=== PATIENT | male | born 1945 | race African-American/Black ===

== ENCOUNTER 2020-01-05 11:57 | Inpatient (IN) | payer OTHER ==
[~2020-01-05] VITALS: Ht 180.3 cm; Wt 71.2 kg
[2020-01-05] MEDS ORDERED: SODIUM CHLORIDE 0.9% 1000ML BAG (SEPSIS BOLUS) IV ONE (12:45)
[2020-01-05 13:14] LABS: HEMATOCRIT. 47.5 % (42.0-52.0); HEMOGLOBIN. 15.8 g/dL (14.0-18.0); MEAN CORPUSCULAR HEMOGLOBIN 28.1 pg (28.0-32.0); MEAN CORPUSCULAR VOLUME 84.2 fL (80.0-94.0); MEAN PLATELET VOLUME 7.7 fl (7.4-10.4); PLATELET 226 x1000/uL (130-400); RED BLOOD CELL COUNT 5.64 mill/uL (4.7-6.1); RED CELL DISTRIBUTION WIDTH 13.9 % (11.6-14.6)
[2020-01-05 13:27] LABS: INR 1.2
[2020-01-05 13:35] LABS: CHLORIDE 107 mEq/L (98-107)
[2020-01-05] MEDS ORDERED: MORPHINE SULFATE 4 MG/ML CPJ (NOT FOR IM USE) IV ONE (13:45)
[2020-01-05] MEDS ORDERED: ONDANSETRON HCL 4MG/2ML INJ IV ONE (13:45)
[2020-01-05] MEDS ORDERED: PIPERACILLIN/TAZ 3.375G PREMIX 50 ML IV ONE (13:45)
[2020-01-05 14:03] LABS: CLARITY URINE CLEAR (CLEAR); COLOR URINE YELLOW (YELLOW); KETONES URINE NEGATIVE (NEGATIVE); LEUKOCYTE ESTERASE URINE NEGATIVE (NEGATIVE); NITRITE URINE NEGATIVE (NEGATIVE); OCCULT BLOOD URINE TRACE (NEGATIVE); PH URINE 6.5 (4.5-8.0); PROTEIN URINE TRACE (NEGATIVE); SPECIFIC GRAVITY URINE 1.013 (1.005-1.030); UROBILINOGEN URINE 0.2 E.U./dL (0.2-1.0)
[2020-01-05 15:20] LABS: PLATELET ESTIMATE NORMAL
[2020-01-05] MEDS ORDERED: BUPIVACAINE HCL 0.5% (5MG/ML) 50ML ONE (17:07)
[2020-01-05] MEDS ORDERED: SKIN ADHESIVE 0.7 GM EA TOP ONE (17:07)
[2020-01-05] MEDS ORDERED: IPRATROPIUM/ALBUTEROL 0.5-3(2.5)MG/3ML NEB HHN NR ×2 (17:43→19:41)
[2020-01-05] MEDS ORDERED: IPRATROPIUM/ALBUTEROL 0.5-3(2.5)MG/3ML NEB HHN SCH (17:45)
[2020-01-05] MEDS ORDERED: CEFEPIME 1,000 MG in DEXTROSE 5% WATER 50 ML IV SCH ×2 (17:45→18:00)
[2020-01-05] MEDS ORDERED: ACETAMINOPHEN 325MG TABLET PO PRN (17:45)
[2020-01-05] MEDS ORDERED: ONDANSETRON HCL 4MG/2ML INJ IV PRN ×4 (17:45→19:00)
[2020-01-05] MEDS ORDERED: ENALAPRIL 2.5MG/2ML VIAL 2ML IV PRN ×2 (18:00→18:15)
[2020-01-05] MEDS ORDERED: FENTANYL CITRATE/PF 50MCG/ML 2ML VIAL ONE ×2 (18:12→18:23)
[2020-01-05] MEDS ORDERED: PROPOFOL 200MG/20ML VIAL IV ONE (18:12)
[2020-01-05] MEDS ORDERED: ROCURONIUM BROMIDE 10MG/ML VIAL 5ML IV ONE (18:12)
[2020-01-05] MEDS ORDERED: NEOSTIGMINE METHYLSULFATE 1MG/ML 10 ML VIAL ONE (18:12)
[2020-01-05] MEDS ORDERED: MIDAZOLAM HCL 2 MG/2 ML VIAL ONE (18:12)
[2020-01-05] MEDS ORDERED: SUCCINYLCHOLINE CHLORIDE 200MG/10ML IV ONE (18:13)
[2020-01-05] MEDS ORDERED: ONDANSETRON HCL 4MG/2ML INJ ONE (18:13)
[2020-01-05] MEDS ORDERED: LIDOCAINE HCL/PF 1% 10 MG/ML 5ML VIAL ONE (18:13)
[2020-01-05] MEDS ORDERED: EPHEDRINE SULFATE 50MG/ML VIAL ONE (18:13)
[2020-01-05] MEDS ORDERED: GLYCOPYRROLATE 0.2 MG/ML 2ML VIAL ONE (18:13)
[2020-01-05] MEDS ORDERED: METOCLOPRAMIDE HCL 10MG/2ML VIAL ONE (18:13)
[2020-01-05] MEDS ORDERED: PHENYLEPHRINE HCL 10 MG/ML 1ML (IV VIAL) IV ONE (18:13)
[2020-01-05] MEDS ORDERED: SODIUM CHLORIDE 0.9% 10ML VIAL ONE (18:13)
[2020-01-05] MEDS ORDERED: DEXT 5%/0.45% NACL KCL 20MEQ/L 1,000 ML IV SCH ×4 (18:14→23:30)
[2020-01-05] MEDS ORDERED: HYDROCODONE/ACETAMINOPHEN 5/325MG TABLET PO PRN ×4 (18:15→18:30)
[2020-01-05] MEDS ORDERED: MORPHINE SULFATE 4 MG/ML CPJ (NOT FOR IM USE) IV PRN (18:15)
[2020-01-05] MEDS ORDERED: ACETAMINOPHEN 650MG SUPP PR PRN ×2 (18:15→18:30)
[2020-01-05] MEDS ORDERED: MORPHINE SULFATE 2 MG/ML CPJ (NOT FOR IM USE) IV PRN ×2 (18:15→19:00)
[2020-01-05] MEDS ORDERED: LABETALOL HCL 5MG/ML VIAL 20ML IV ONE (18:51)
[2020-01-05] MEDS ORDERED: MEPERIDINE HCL/PF 25MG/ML CPJ IV PRN (19:00)
[2020-01-05] MEDS ORDERED: HYDROMORPHONE HCL/PF 2MG/ML CPJ IV PRN (19:00)
[2020-01-05] MEDS ORDERED: SODIUM CHLORIDE 0.9% 1,000 ML IV ONE (19:15)
[2020-01-05 20:10] LABS: BG BASE EXCESS -4.3 mmol/L (-2.0-2.0); BG DEOXYHEMOGLOBIN 0.8 % (0.0-5.0); BG FRACTION INSPIRED OXYGEN 60; BG HCO3 ACT 21.6 mmol/L (22.0-26.0); BG METHEMOGLOBIN 0.4 % (0.0-1.5); BG OXYGEN SATURATION 99.2 % (92.0-98.5); BG OXYHEMOGLOBIN 96.8 % (94.0-97.0); BG PCO2 42.4 mmHg (35.0-45.0); BG PH 7.325 (7.350-7.450); BG PO2 165.9 mmHg (75.0-100.0); BG SAMPLE SITE RIGHT RADIAL; BG TOTAL HEMOGLOBIN 15.8 g/dL (12.0-18.0); BG VENT MODE MASK - SIMPLE
[2020-01-05] MEDS ORDERED: FAMOTIDINE 20MG/2ML VIAL IV SCH (21:00)
[2020-01-05] MEDS ORDERED: ACETYLCYSTEINE 200MG/ML 20% VIAL 30ML PO SCH (21:00)
[2020-01-05] MEDS ORDERED: SODIUM CHLORIDE 0.9% INJ 3ML FLUSH IVF SCH (22:00)
[2020-01-05] MEDS ORDERED: METHYLPREDNISOLONE SOD SUCC 125 MG/2 ML VIAL IV SCH (22:00)
[2020-01-05] MEDS: MORPHINE SULFATE 2 MG/ML CPJ (NOT FOR IM USE) IV PRN (22:20)
[2020-01-05 22:43] VITALS: BP 151/86
[2020-01-05 22:44] VITALS: BP 151/86
[2020-01-06] VITALS: BP 154/86
[2020-01-06] MEDS: IPRATROPIUM/ALBUTEROL 0.5-3(2.5)MG/3ML NEB HHN SCH ×5 (01:03→16:40)
[2020-01-06] MEDS ORDERED: HYDR-4005 PO (01:15)
[2020-01-06] MEDS ORDERED: CICL6.1H2 INH (01:15)
[2020-01-06] MEDS ORDERED: LISI-648 PO (01:15)
[2020-01-06] MEDS ORDERED: SIMV-46 PO (01:15)
[2020-01-06] MEDS ORDERED: ALBU18HF2 INH (01:15)
[2020-01-06 01:20] LABS: *AMPHETAMINES SCREEN URINE NEGATIVE (NEGATIVE); *BARBITURATES SCREEN URINE NEGATIVE (NEGATIVE); *BENZODIAZEPINES SCREEN URINE PRESUMTIVE POSITIVE (NEGATIVE); *COCAINE SCREEN URINE NEGATIVE (NEGATIVE); CANNABINOID URINE SCREEN NEGATIVE (NEGATIVE); METHADONE URINE SCREEN NEGATIVE (NEGATIVE); OPIATES URINE SCREEN PRESUMTIVE POSITIVE (NEGATIVE)
[2020-01-06 01:21] LABS: PHENCYCLIDINE URINE SCREEN NEGATIVE (NEGATIVE)
[2020-01-06] MEDS: CEFEPIME 1,000 MG in DEXTROSE 5% WATER 50 ML IV SCH ×2 (01:27→13:09)
[2020-01-06] MEDS: MORPHINE SULFATE 2 MG/ML CPJ (NOT FOR IM USE) IV PRN (03:57)
[2020-01-06 04:00] VITALS: BP 158/90
[2020-01-06] MEDS: SODIUM CHLORIDE 0.9% INJ 3ML FLUSH IVF SCH ×2 (05:40→14:03)
[2020-01-06] MEDS ORDERED: METHYLPREDNISOLONE SOD SUCC 125 MG/2 ML VIAL IV SCH (06:00)
[2020-01-06 07:32] LABS: HEMATOCRIT. 44.6 % (42.0-52.0); HEMOGLOBIN. 14.3 g/dL (14.0-18.0); MEAN CORPUSCULAR HEMOGLOBIN 27.1 pg (28.0-32.0); MEAN CORPUSCULAR VOLUME 84.4 fL (80.0-94.0); PLATELET 183 x1000/uL (130-400); RED BLOOD CELL COUNT 5.28 mill/uL (4.7-6.1); RED CELL DISTRIBUTION WIDTH 14.1 % (11.6-14.6)
[2020-01-06] MEDS: CLONIDINE 0.1MG TABLET PO PRN ×2 (07:48→13:09)
[2020-01-06] MEDS: MORPHINE SULFATE 4 MG/ML CPJ (NOT FOR IM USE) IV PRN ×2 (07:49→14:02)
[2020-01-06 07:52] LABS: CHLORIDE 110 mEq/L (98-107)
[2020-01-06 08:00] VITALS: BP 175/98
[2020-01-06 08:32] LABS: BG CARBOXYHEMOGLOBIN 1.4 % (0.5-1.5); BG DEOXYHEMOGLOBIN 2.8 % (0.0-5.0); BG FRACTION INSPIRED OXYGEN 28; BG HCO3 ACT 24.4 mmol/L (22.0-26.0); BG METHEMOGLOBIN 0.3 % (0.0-1.5); BG OXYGEN SATURATION 97.2 % (92.0-98.5); BG OXYHEMOGLOBIN 95.5 % (94.0-97.0); BG PCO2 38.8 mmHg (35.0-45.0); BG PH 7.416 (7.350-7.450); BG PO2 82.4 mmHg (75.0-100.0); BG SAMPLE SITE RIGHT RADIAL; BG TOTAL HEMOGLOBIN 15.1 g/dL (12.0-18.0); BG VENT MODE NASAL CANNULA
[2020-01-06] MEDS ORDERED: FAMOTIDINE 20MG/2ML VIAL IV SCH (09:00)
[2020-01-06] MEDS ORDERED: DOCUSATE SODIUM 250MG CAPSULE PO SCH ×2 (09:00)
[2020-01-06] MEDS ORDERED: ACETYLCYSTEINE 100MG/ML 10% VIAL 4ML PO SCH (09:00)
[2020-01-06] MEDS ORDERED: DEXT 5%/0.45% NACL KCL 20MEQ/L 1,000 ML IV SCH (11:00)
[2020-01-06 12:00] VITALS: BP 170/95
[2020-01-06] MEDS ORDERED: ACETYLCYSTEINE 100MG/ML 10% VIAL 4ML INH SCH (13:00)
[2020-01-06] MEDS ORDERED: DILTIAZEM HCL 60MG TABLET PO SCH (13:17)
[2020-01-06 16:00] VITALS: BP 156/92
[2020-01-06] MEDS ORDERED: MONTELUKAST SODIUM 10MG TABLET PO SCH ×2 (17:00)
[2020-01-06 17:45] VITALS: BP 158/75
[2020-01-06 19:45] LABS: PLATELET ESTIMATE NORMAL
== END 2020-01-06 20:33 | disposition short-term general hospital (02) | DRG 853 ==
LOC: ER 11:57 → EDBEDREQ 16:43 → EDBEDREQTM 16:43 → EDBEDREQSVC 16:43 → ER 17:00 → 7WST 21:01
PROVIDERS: ADMIT Surgery; ATTEND Surgery
PROC: 0DTJ0ZZ Resection of Appendix, Open Approach (ICD-10-PCS; principal; 2020-01-05)
DX: A41.9 Sepsis, unspecified organism (principal); J96.00 Acute respiratory failure, unspecified whether with hypoxia or hypercapnia; K35.80 Unspecified acute appendicitis; J44.1 Chronic obstructive pulmonary disease with (acute) exacerbation; R73.9 Hyperglycemia, unspecified; K43.2 Incisional hernia without obstruction or gangrene; M54.5 Low back pain; G89.29 Other chronic pain; K80.20 Calculus of gallbladder without cholecystitis without obstruction; I10 Essential (primary) hypertension; Z87.11 Personal history of peptic ulcer disease; Z87.891 Personal history of nicotine dependence; Z90.49 Acquired absence of other specified parts of digestive tract
CPT/HCPCS: 36415; 36600; 71045; 74176; 80053; 80305; 81003; 82375; 82805; 83605; 83880; 84145; 84484; 85025; 88304; 93005; 94640; 96365; 99285; J0330; J0692; J2175; J2250; J2270; J2370; J2405; J2543; J2704; J2710; J2765; J2930; J3010; J3490; J7030; J7060; J7608

== ENCOUNTER 2021-08-13 11:29 | Emergency (ER) | payer OTHER ==
[~2021-08-13] VITALS: Ht 170.2 cm; Wt 89.0 kg
[~2021-08-13 11:29] MED LIST: ALBU18HF2 INH; CICL6.1H2 INH; HYDR-4005 PO; LISI-648 PO; SIMV-46 PO
[2021-08-13] MEDS ORDERED: ALBUTEROL (0.083%) 2.5MG/3ML NEB HHN STA (11:50)
[2021-08-13] MEDS ORDERED: IPRATROPIUM BROMIDE (0.02%) 0.5MG/2.5ML NEB HHN STA (11:50)
[2021-08-13] MEDS ORDERED: METHYLPREDNISOLONE SOD SUCC 125 MG/2 ML VIAL IV STA (11:50)
[2021-08-13] MEDS ORDERED: SODIUM CHLORIDE 0.9% 500 ML IV ONE (12:00)
[2021-08-13 12:27] LABS: CHLORIDE 100 mEq/L (98-107)
[2021-08-13] MEDS ORDERED: CEFTRIAXONE 1 G PREMIX 50 ML IV ONE (12:30)
[2021-08-13] MEDS ORDERED: AZITHROMYCIN 500 MG in DEXT 5% WATER 250 ML IV ONE (12:30)
[2021-08-13 12:36] LABS: HEMATOCRIT. 41.5 % (42.0-52.0); HEMOGLOBIN. 13.4 g/dL (14.0-18.0); MEAN CORPUSCULAR HEMOGLOBIN 27.9 pg (28.0-32.0); MEAN CORPUSCULAR VOLUME 86.5 fL (80.0-94.0); MEAN PLATELET VOLUME 7.3 fl (7.4-10.4); PLATELET 373 x1000/uL (130-400); RED BLOOD CELL COUNT 4.79 mill/uL (4.7-6.1); RED CELL DISTRIBUTION WIDTH 13.6 % (11.6-14.6)
[2021-08-13 13:47] LABS: PLATELET ESTIMATE NORMAL
[2021-08-13 18:36] VITALS: BP 104/56
== END 2021-08-13 18:36 | disposition short-term general hospital (02) ==
LOC: ER 11:29
DX: J18.9 Pneumonia, unspecified organism (principal); E86.0 Dehydration; J44.1 Chronic obstructive pulmonary disease with (acute) exacerbation; Z20.822 Contact with and (suspected) exposure to COVID-19
CPT/HCPCS: 36415; 71045; 80053; 83880; 84484; 85025; 87040; 87426; 93005; 94640; 96365; 96366; 96367; 96375; 99285; J0456; J0696; J2930; J7030; J7060